=== PATIENT | female | born 1965 | race Asian ===

== ENCOUNTER 2018-05-22 07:09 | Day surgery (SDC) | payer OTHER ==
[2018-05-19 14:34] VITALS: BMI 26.5
[2018-05-22 09:30] VITALS: TEMP 97.4
[2018-05-22 10:33] VITALS: BP 114/60; PULSE 57
--- NOTE | 2018-05-23 11:28 | PATH ---
Surgical Pathology Report Patient Name: MORENA PAUL [facility]. Rec. #: [id number] /Age/Gender: 1965 (Age: 52) / F Account: [id number] Location: [facility]-ENDOSCOPY Taken: 05/22/2018 Received: 05/22/2018 Reported: 05/23/2018 Physicians: Radha Wu M.D. Specimen(s) Received RECTAL POLYP Clinical History Colon screening, rectal polyp Final Diagnosis RECTAL POLYP, POLYPECTOMY: SESSILE SERRATED POLYP. Electronically Signed Vaughn Handley M.D. Gross Description Received in formalin, labeled "rectal polyp" are 3 pacheco, irregular portions of soft tissue ranging from 0.2 to 0.7 cm. in greatest dimension. The specimen is submitted in toto in one cassette. DREA/05/22/2018 mini/05/22/2018
== END 2018-05-22 10:15 | disposition home or self-care (01) ==
LOC: JASU-ENDO 07:09
PROVIDERS: ATTEND Internal Medicine Gastroenterology
PROC: 0DBP8ZX Excision of Rectum, Via Natural or Artificial Opening Endoscopic, Diagnostic (ICD-10-PCS; principal; 2018-05-22 08:00)
DX: Z12.11 Encounter for screening for malignant neoplasm of colon (principal); K62.1 Rectal polyp; K64.8 Other hemorrhoids; K63.89 Other specified diseases of intestine
CPT/HCPCS: 88305-TC